=== PATIENT | female | born 1980 | race Caucasian/White ===

== ENCOUNTER 2017-03-04 11:05 | Emergency (ER) | payer OTHER ==
--- NOTE | 2017-03-04 12:17 | UC ---
Shoulder Pain HPI - HPI Summary HPI Summary: right shoulder pain x 1 day felt a pop on her right shoulder yesterday at work - History of Current Complaint Chief Complaint: UCUpperExtremity Stated Complaint: RIGHT SHOULDER PAIN Time Seen by Provider: 03/04/17 11:46 Hx Obtained From: Patient Hx Last Menstrual Period: 02/18/17 Onset/Duration: Sudden Onset, Lasting Days - 1, Still Present Timing: Constant Severity Initially: Moderate Severity Currently: Moderate Location Of Pain: Is Discrete @ - right shoulder Character: Aching, Throbbing Aggravating Factor(s): Movement, Lifting, Flexion, Extension, Internal Rotation , External Rotation, Abduction Alleviating Factor(s): Rest Associated Signs And Symptoms: Negative: Swelling, Redness, Bruising, Fever, Weakness, Numbness/Tingling - Allergies/Home Medications Allergies/Adverse Reactions: Allergies Allergy/AdvReac Type Severity Reaction Status Date / Time NSAIDs AdvReac Unknown KIDNEY Verified 03/04/17 11:44 STONES AND STENTS. AVOIDS STENTS Home Medications: Home Medications Acetaminophen [Eq Acetaminophen] 500 mg PO Q4H PRN 03/04/17 [History Confirmed 03/04/17] PMH/Surg Hx/FS Hx/Imm Hx Previously Healthy: Yes Cardiovascular History: Hypertension - not on meds - Surgical History Surgical History: Yes Surgery Procedure, Year, and Place: ureteral stent placement 10/2015. partial thyroidectomy around 2010. - Family History Known Family History: Positive: Other - arthritis Negative: Diabetes - Social History Alcohol Use: Rare Substance Use Type: None Smoking Status (MU): Light Every Day Tobacco Smoker Type: Cigarettes Amount Used/How Often: 1/4 PPD Length of Time of Smoking/Using Tobacco: 18 Years Have You Smoked in the Last Year: Yes Household Exposure Type: Cigarettes - Immunization History Most Recent Influenza Vaccination: Not the Season Review of Systems Constitutional: Negative Skin: Negative Eyes: Negative ENT: Negative Respiratory: Negative Is Patient Immunocompromised?: No All Other Systems Reviewed And Are Negative: Yes Physical Exam Triage Information Reviewed: Yes Appearance: Well-Appearing, Obese Vital Signs: Initial Vital Signs Temp 97.3 F 03/04/17 11:34 Pulse 79 03/04/17 11:34 Resp 20 03/04/17 11:34 BP 205/126 03/04/17 11:34 Pulse Ox 98 03/04/17 11:34 Vital Signs Reviewed: Yes Eyes: Positive: Conjunctiva Clear ENT: Positive: Normal ENT inspection, Hearing grossly normal Neck: Positive: Supple, Nontender, No Lymphadenopathy Respiratory: Positive: Chest non-tender, Lungs clear, Normal breath sounds Cardiovascular: Positive: RRR, No Murmur, Pulses Normal Musculoskeletal: Positive: Other: - right shoulder: no swelling, no erythema, mild diffuse tenderness, painful ROM on abduction, extension, internal rotation with limited strength Shoulder Course/Dx - Differential Dx/Diagnosis Provider Diagnoses: right shoulder strain. elevated blood pressure Discharge - Discharge Plan Condition: Stable Disposition: HOME Patient Education Materials: Shoulder Sprain (ED), Hypertension (ED) Referrals: Ginny Graham MD [Primary Care Provider] - 7 Days Additional Instructions: please follow up with your pcp radha to evaluate your high blood pressure
--- NOTE | 2017-03-04 12:22 | RAD ---
INDICATION: Exacerbation of chronic right shoulder pain COMPARISON: X-ray dated January 06, 2015 TECHNIQUE: 4 views of the right shoulder were obtained. FINDINGS: The adequately corticated bones are in normal alignment. Joint spaces appear maintained. No fracture, dislocation or focal bony abnormality is seen. IMPRESSION: Normal radiograph of the right shoulder. If the patient's symptoms persist, follow-up imaging is recommended.
[2017-03-04 12:40] VITALS: BP 170/110
== END 2017-03-04 12:51 | disposition home or self-care (01) ==
LOC: UCCORT 11:05
DX: S46.911A Strain of unspecified muscle, fascia and tendon at shoulder and upper arm level, right arm, initial encounter (principal); X58.XXXA Exposure to other specified factors, initial encounter; Y93.9 Activity, unspecified; Y92.9 Unspecified place or not applicable; Y99.9 Unspecified external cause status; I10 Essential (primary) hypertension; Z88.6 Allergy status to analgesic agent
CPT/HCPCS: 99212; G0463

== ENCOUNTER 2017-03-10 11:38 | Emergency (ER) | payer OTHER ==
[2017-03-10 12:13] VITALS: BP 175/120
--- NOTE | 2017-03-10 13:03 | UC ---
Throat Pain/Nasal Bertrand HPI - HPI Summary HPI Summary: Pt presents with sore throat since this morning. No fevers, chills. no sinus, ear pain. Pt taking tramadol for shoulder injury and "pinched nerve." No analgesia since 3am. Pt at banana - no difficulty with swallowing. No fevers, chills, rash. Pt denies drooling. + cough. No wheeze. Pt does smoke tobacco. Pt's son here as a patient with same complaint. + both with sick contacts. - History of Current Complaint Chief Complaint: UCGeneralIllness Stated Complaint: SORE THROAT Time Seen by Provider: 03/10/17 12:50 Hx Obtained From: Patient Hx Last Menstrual Period: BEGINNING OF February, Onset/Duration: Sudden Onset, Gradual Onset Severity: Mild Cough: Nonproductive Associated Signs & Symptoms: Positive: Negative - Allergies/Home Medications Allergies/Adverse Reactions: Allergies Allergy/AdvReac Type Severity Reaction Status Date / Time NSAIDs AdvReac Unknown KIDNEY Verified 03/10/17 12:13 STONES AND STENTS. AVOIDS STENTS PMH/Surg Hx/FS Hx/Imm Hx - Surgical History Surgical History: Yes Surgery Procedure, Year, and Place: ureteral stent placement 10/2015. partial thyroidectomy around 2010. - Family History Known Family History: Positive: Other - arthritis Negative: Diabetes - Social History Occupation: Employed Full-time Lives: With Family Alcohol Use: Rare Substance Use Type: None Smoking Status (MU): Light Every Day Tobacco Smoker Type: Cigarettes Amount Used/How Often: 3/4 PPD Length of Time of Smoking/Using Tobacco: 19 Years Have You Smoked in the Last Year: Yes Household Exposure Type: Cigarettes - Immunization History Most Recent Influenza Vaccination: Not the Season Review of Systems Constitutional: Negative Skin: Negative Eyes: Negative ENT: Sore Throat Respiratory: Negative Cardiovascular: Negative Gastrointestinal: Negative Genitourinary: Negative Motor: Negative Neurovascular: Negative Musculoskeletal: Negative Neurological: Negative Psychological: Negative All Other Systems Reviewed And Are Negative: Yes Physical Exam Triage Information Reviewed: Yes Appearance: Well-Appearing, No Pain Distress, Well-Nourished Vital Signs: Initial Vital Signs Temp 98.1 F 03/10/17 12:07 Pulse 80 03/10/17 12:07 Resp 12 03/10/17 12:07 BP 175/120 03/10/17 12:07 Pulse Ox 99 03/10/17 12:07 Eye Exam: Normal Eyes: Positive: Conjunctiva Clear ENT Exam: Normal ENT: Positive: Hearing grossly normal, Pharyngeal erythema, TMs normal. Negative: Pharynx normal - + erythema no exudate uvula midlind Dental Exam: Normal Neck exam: Normal Neck: Positive: Supple, Nontender, No Lymphadenopathy Respiratory Exam: Normal Respiratory: Positive: Chest non-tender, Lungs clear, Normal breath sounds, No respiratory distress, No accessory muscle use Cardiovascular Exam: Normal Cardiovascular: Positive: RRR, No Murmur, Pulses Normal Musculoskeletal Exam: Normal Neurological Exam: Normal Neurological: Positive: Alert Psychological Exam: Normal Skin Exam: Normal Throat Pain/Nasal Course/Dx - Course Assessment/Plan: Pt presents wtih sore throat starting this moring. Painful swallowing. No drooling. Pt without fevers. Pt with erythema on exam. No exudate. rapid strep neg. d/w pt. hydrate. motrin/apap. secretion precaution - Differential Dx/Diagnosis Provider Diagnoses: pharyngitis Discharge - Discharge Plan Condition: Stable Disposition: HOME Patient Education Materials: Pharyngitis (ED) Referrals: Harper Vazquez MD [Primary Care Provider] - Additional Instructions: - Stay well hydrated. Drink plenty of non-alcoholic, non-caffinated beverages. - Gargle with warm, salt water 2-3 times a day - Cold beverages may be soothing to your throat - popsicles, apple sauce, jello - These infections are spread by secretions - do NOT share eating or drinking utensils - clean items you share with other people such as cell phones, computer mouse, TV remote, computer tablets, etc. Once you start to feel better , change your toothbrush and your pillowcase - Alternate ibuprofen (Advil, Motrin) and Tylenol every 3 hours for pain or fever. Take with food. Do NOT take for more than 4-5 days. - your throat sample has been sent for additional testing. If you need antibiotics, you will receive a call from our care steam shovel operator. - Call your doctor today to schedule a follow-up appointment regarding your shoulder and hand. Call your doctor or return with questions or concerns
== END 2017-03-10 13:18 | disposition home or self-care (01) ==
LOC: UCCORT 11:38
DX: J02.9 Acute pharyngitis, unspecified (principal); F17.210 Nicotine dependence, cigarettes, uncomplicated; Z88.6 Allergy status to analgesic agent
CPT/HCPCS: 87070; 87651; 99211; G0463